=== PATIENT | female | born 2000 | race Caucasian/White ===

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

== ENCOUNTER 2020-03-01 07:21 | Outpatient (REF) | payer MEDICAID, SELFPAY ==
[2020-03-03 09:55] LABS: SARS-CoV-2 RNA Not Detected (NotDetected); SARS-CoV-2 RNA Source Nasal/Nares
== END 2020-03-01 07:41 ==
LOC: LBO 07:21
PROVIDERS: PCP Family Medicine; Visit Provider Nurse Practitioner Family
DX: Z20.828 Contact with and (suspected) exposure to other viral communicable diseases (principal); Z11.59 Encounter for screening for other viral diseases
CPT/HCPCS: U0003

== ENCOUNTER 2020-07-04 18:02 | Outpatient (REF) | payer MEDICAID, SELFPAY ==
[2020-07-04 20:41] LABS: Abs Immature Grans 0.04 10^3/uL (0.0-0.06); Absolute Basophil Count 0.08 10^3/uL (0.0-0.2); Absolute Eosinophil Count 0.42 10^3/uL (0.0-0.7); Absolute Lymphocyte Count 3.08 10^3/uL (1.2-3.4); Absolute Monocyte Count 0.87 10^3/uL (0.1-0.8); Basophils % 0.9; Eosinophils % 4.7; HCT 47.6 % (36.0-46.0); HGB 15.6 g/dL (11.2-15.7); Immature Grans % 0.4; Lymphocytes % 34.6; MCH 28.1 pg (27.0-33.0); MCHC 32.8 % (32.0-36.0); MCV 85.6 fL (80-95); MPV 9.3 fL (8.0-11.0); Monocytes % 9.8; Neutrophils % 49.6; Nucleated RBC 0 %; Platelet Count 372 10^3/uL (130-400); RBC 5.56 10^6/uL (3.93-5.22); RDW 12.7 % (11.7-14.6); RDW-SD 39.8 fL; WBC 8.89 10^3/uL (4.4-10.8)
[2020-07-04 21:31] LABS: ALT 21 U/L (14-59); AST 13 U/L (15-37); Albumin 4.1 g/dL (3.4-5.0); Alkaline Phosphatase 77 U/L (46-116); Anion Gap 8.2 mmol/L (3-11); BUN 8 mg/dL (7-18); Bilirubin, Total 0.3 mg/dL (0.2-1.0); CO2 27.8 mmol/L (21.0-32.0); CREATININE 0.7 mg/dL (0.55-1.02); Calcium 9.4 mg/dL (8.5-10.1); Chloride 105 mmol/L (98-107); Glucose 89 mg/dL (74-106); Potassium 4.8 mmol/L (3.5-5.1); Sodium 141 mmol/L (136-145); TSH (W/Ref FT4) 1.24 uIU/mL (0.52-4.13); Total Protein 7.4 g/dL (6.4-8.2)
[2020-07-05 11:10] LABS: ESR 9 mm/hr (<or=20)
== END 2020-07-04 18:03 | disposition home or self-care (01) ==
LOC: NCHCN 18:02
PROVIDERS: PCP Family Medicine; Visit Provider Nurse Practitioner Family
DX: R63.4 Abnormal weight loss (principal); R59.0 Localized enlarged lymph nodes
CPT/HCPCS: 80053; 85652; 84443; 85025

== ENCOUNTER 2021-09-12 18:59 | Outpatient (REF) | payer MEDICAID, SELFPAY ==
[2021-09-12 14:36] LABS: HCT 48.9 % (36.0-46.0); HGB 15.6 g/dL (11.2-15.7); MCH 28.3 pg (27.0-33.0); MCHC 31.9 % (32.0-36.0); MCV 89 fL (80-95); Platelet Count 345 10^3/uL (130-400); RBC 5.52 10^6/uL (3.93-5.22); RDW 13.7 % (11.7-14.6); RDW-SD 44.9 fL; WBC 11.48 10^3/uL (4.4-10.8)
[2021-09-12 14:48] LABS: Iron 62 ug/dL (50-170); Total Iron Binding Capacity 272 ug/dL (250-450); Transferrin Sat 23 % (15-50)
[2021-09-12 14:57] LABS: Anion Gap 8.3 mmol/L (3-11); BUN 8 mg/dL (7-18); CO2 27.7 mmol/L (21.0-32.0); CREATININE 0.7 mg/dL (0.55-1.02); Calcium 9.5 mg/dL (8.5-10.1); Chloride 105 mmol/L (98-107); Glucose 79 mg/dL (74-106); Potassium 4.2 mmol/L (3.5-5.1); Sodium 141 mmol/L (136-145); TSH (W/Ref FT4) 1.11 uIU/mL (0.36-3.74)
== END 2021-09-12 19:00 | disposition home or self-care (01) ==
LOC: NCHCN 18:59
PROVIDERS: PCP Family Medicine; Visit Provider Nurse Practitioner Family
DX: R63.4 Abnormal weight loss (principal)
CPT/HCPCS: 80048; 85027; 83540; 83550; 84443

== ENCOUNTER 2021-12-25 14:15 | Outpatient (REF) | payer MEDICAID, SELFPAY ==
--- NOTE | 2021-12-25 12:15 | PAPFT_PTH ---
PATIENT: Jordy Acevedo LOC: [facility] U#:[id number] AGE/SX: 21/F ROOM: RE12/25/[address]: Lucia Rosario : 2000 BED: DIS: 12/25/2021 SPEC #: [id number] RECD: 12/25/21 18:35 STATUS: LIBERTAD REQ #: [id number] CAITLIN: 12/25/21 12:[address]: Lucia Rosario DEPT: [facility] Cytology RECD BY: Estephanie Newman ENTERED: 12/25/21 18:36 SP TYPE: PAPFT OTHR DR: Duane Nielsen Tissues: 1 - CX/ENDOCX FOR PAP SMEARS Procedures: PAP THIN PREP/UVM Screening Comments: [id number] (CHLAMYDIA/GC)
[2021-12-25 20:07] LABS: TSH (W/Ref FT4) 0.92 uIU/mL (0.36-3.74)
[2021-12-26 15:09] LABS: Chlamydia Result Negative (Negative); GC Result Negative (Negative)
== END 2021-12-25 14:16 | disposition home or self-care (01) ==
LOC: NCHCN 14:15
PROVIDERS: PCP Family Medicine; Visit Provider Nurse Practitioner Family
DX: R63.4 Abnormal weight loss (principal); N92.6 Irregular menstruation, unspecified; Z12.4 Encounter for screening for malignant neoplasm of cervix; Z11.3 Encounter for screening for infections with a predominantly sexual mode of transmission
CPT/HCPCS: 87491; 87591; 88142; 84443

== ENCOUNTER 2022-04-21 16:34 | Emergency (ER) | payer MEDICAID, SELFPAY ==
[2022-04-21 16:42] VITALS: BP 110/69; PULSE 72; RESP 16; TEMP 36.6; O2SAT 100
--- NOTE | 2022-04-21 18:02 | W.ED.GENAD ---
Discharge Plan Disposition Patient Disposition: Home Condition: Improving Discharge Details Clinical Impression: Hand laceration Primary Care Provider: Duane Nielsen ED Provider: Julian Robbins Home Meds and New Rx's Prescriptions: Continued cholecalciferol (vitamin D3) 10 mcg (400 unit) tablet 10 mcg PO DAILY fluticasone propionate 16 GM spray,suspension 1 rc NS HS montelukast 10 mg Tablet 10 mg PO QPM Vitamin Plus Low Iron 27 mg iron- 1 mg tablet 1 tab PO DAILY Label Comments: TAKE ONE TABLET BY MOUTH EVERY DAY albuterol sulfate 2.5 mg /3 mL (0.083 %) solution for nebulization 2.5 mg inhalation Q4H PRN PRN Label Comments: INHALE THE CONTENTS OF ONE VIAL VIA NEBULIZER EVERY 4 TO 6 HOURS NEEDED albuterol sulfate [ProAir HFA] 200 PUFF HFA aerosol inhaler 2 puff Inhalation PRN PRN budesonide-formoterol [Symbicort] 80-4.5 mcg/actuation Hfa Aerosol Inhaler 1 puff INHALATION BID Discharge Instructions Instructions: Laceration (ED) Additional Instructions: Laceration repaired without difficulty. Keep the laceration clean and dry, change dressing daily. Sutures should be removed in 10 days. Please watch for new or worsening symptoms and return to the ER sooner as necessary. Discharge Data Discharge Date/Time-TO BE ENTERED AT DEPARTURE: 04/21/22 17:59 Medical Decision Making 21-year-old female, hajzm-mvea-zoytjzue, tetanus status up-to-date, accidentally cut her left hand with a knife when opening a gift. Denies numbness, tingling, weakness, concern for foreign body. No clear indication to obtain x-ray. Laceration will require repair Laceration repaired without difficulty. Antibiotic dressing applied. Standard discharge and return precautions were provided. Patient understands, is agreeable to this plan, and has no additional questions or concerns upon discharge. This documentation was generated using [employer] system, please disregard any oddities of phrase or misspellings. Medical Records Medical records reviewed: Yes I reviewed the patient's medical records. HPI General Mode of arrival: ambulatory. Date/Time Provider Initiated Documentation: 04/21/22 16:47. Information obtained by: patient. History of Present Illness 21 year old F presents to the emergency department with the chief complaint of L hand lac, described as mild, with intensity rated at 3. Quality is described as aching, and is localized to the left and upper extremity. Patient reports no radiation. Patient started experiencing this minute(s) (45) and it has been constant. No relieving factors improve symptom(s), No exacerbating factors reported . Patient notes no other symptoms.. Patient did receive the following treatments prior to arrival, none Related Data Home Medications Medication Instructions Recorded Confirmed fluticasone propionate 50 1 rc NS HS 02/01/13 04/21/22 mcg/actuation nasal spray,suspension albuterol sulfate 90 mcg/actuation 2 puff inhalation PRN PRN 09/23/16 04/21/22 aerosol inhaler (ProAir HFA) montelukast 10 mg tablet 10 mg PO QPM 02/07/18 04/21/22 budesonide-formoterol HFA 80 1 puff inhalation BID 04/02/18 04/21/22 mcg-4.5 mcg/actuation aerosol inhaler (Symbicort) cholecalciferol (vitamin D3) 10 10 mcg PO DAILY 09/12/19 04/21/22 mcg (400 unit) tablet vitamin with calcium 1 tab PO DAILY 10/06/19 04/21/22 no.72-iron 27 mg-folic acid 1 mg tablet ( Vitamins Plus Low Iron) albuterol sulfate 2.5 mg/3 mL 2.5 mg inhalation Q4H PRN PRN 10/09/19 04/21/22 (0.083 %) solution for nebulization Allergies Allergy/AdvReac Type Severity Reaction Status Date / Time house dust mite Allergy Intermediate Verified 04/21/22 16:45 Penicillins Allergy Skin Rash Unverified 04/21/22 16:45 General Stated Complaint: Laceration ROSALIO: 4 Review of Systems Constitutional Constitutional: Denies fever(s) and Denies weakness Musculoskeletal Musculoskeletal: Denies arthralgias, Denies numbness, Denies stiffness and Denies tingling Integumentary/Breasts Skin/Breast: Denies rash Neurologic Neurologic: Denies numbness, Denies tingling and Denies weakness PFSH All Active Problems Hand laceration (Acute) Penicillin allergy (Acute) (Acute) Positive test (Acute) Asthma (Chronic) Polycythemia (Acute) Medical History Contraceptive management 12/2017 Mirena IUD inserted. Removed 4 days after insertion secondary to pelvic pain. Negative STI and vaginal pathogen screen 01/18/2018 Rx for OCPs 02/23/2018 Stopped OCPs r/t migraines, Rx for Nuvaring, pt aware of risk of migraines Encounter for IUD insertion Surgical History S/P appendectomy Family History Maternal Grandmother Multiple sclerosis Melanoma Social History Smoking/Tobacco Use Status: Never Smoking risk assessment performed?: Yes Alcohol Intake: never Drug use: Occasionally Substance use type: marijuana Details: smokes marijuana couple times per week What is your relationship status?: living with partner Panel score (0-1 are the most socially isolated patients): 1 Do you feel safe at home: Yes Do you feel safe in your relationship?: Yes 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 Date GA/Weeks # Preg Succ Route Wgt Sex Labor Lgth Anesthesia Location [facility] 09/06/20 Delivery Date: 09/06/20 Last Updated by: Eve Perry LPN Patient transferred care to [facility]. Exam Const General: cooperative, healthy appearing, comfortable and no acute distress Orientation: alert and awake HENCT Head: normal to inspection, normocephalic and atraumatic Eyes Conjunctivae: conjunctivae normal Neck Neck: normal visual inspection, trachea midline and supple Resp Effort & Inspection: normal respiratory effort and able to speak in complete sentences Cardio Rate: regular rate Rhythm: regular rhythm Skin General skin exam: no rashes or lesions noted Neuro General: patient alert, patient awake, moves all extremities and no focal motor deficits Cognition: normal cognition Speech: speech normal Gait: normal gait Sensory Exam: no sensory deficits noted Extrem General: full ROM and capillary refill normal Hand/finger images: 1. 2.5 cm well approximated laceration. Bleeding controlled. Neuro, vascular, tendon intact. No foreign body. Normal capillary refill. 5-5 strength Psych Appearance: grossly normal Mental Status: mental status grossly normal Course Vital Signs Vital signs: Vital Signs Temperature 36.6 C 04/21/22 16:42 Pulse 72 04/21/22 16:42 Respiratory Rate 16 04/21/22 16:42 Blood Pressure 110/69 04/21/22 16:42 Pulse Oximetry 100 04/21/22 16:42 Temperature 36.6 C 04/21/22 16:42 Temperature Source Temporal Artery Scan 04/21/22 16:42 Pulse 72 04/21/22 16:42 Respiratory Rate 16 04/21/22 16:42 Respiratory Effort Non-Labored 04/21/22 16:47 Blood Pressure 110/69 04/21/22 16:42 Blood Pressure Position Sitting 04/21/22 16:42 Pulse Oximetry 100 04/21/22 16:42 Oxygen Delivery Method Room Air 04/21/22 16:42 Oxygen Flow Rate 0 04/21/22 16:42 Procedures Laceration Laceration 1: Site: hand Side (If applicable): left Size (cm): 2.5 Description: linear and clean Depth: simple, single layer Local Anesthetic: Lidocaine 1% Amount of anesthesia used (mL): 4 Pre-repair: wound explored Skin layer closed with: nylon Size (cm): 4-0 Number of sutures: 4 Technique: simple, interrupted
== END 2022-04-21 17:59 | disposition home or self-care (01) ==
PROVIDERS: Emergency Provider Physician Assistant; PCP Family Medicine
DX: S61.412A Laceration without foreign body of left hand, initial encounter (principal); W26.0XXA Contact with knife, initial encounter
CPT/HCPCS: 12001

== ENCOUNTER 2022-10-07 13:54 | Outpatient (REF) | payer MEDICAID, SELFPAY ==
[2022-10-07 14:37] LABS: Abs Immature Grans 0.04 10^3/uL (0.0-0.06); Absolute Basophil Count 0.09 10^3/uL (0.0-0.2); Absolute Eosinophil Count 0.29 10^3/uL (0.0-0.7); Absolute Monocyte Count 0.84 10^3/uL (0.1-0.8); Basophils % 0.8; Eosinophils % 2.6; HCT 47.9 % (36.0-46.0); HGB 15.8 g/dL (11.2-15.7); Immature Grans % 0.4; Lymphocytes % 34.3; MCH 28.3 pg (27.0-33.0); MCV 86 fL (80-95); MPV 9.4 fL (8.0-11.0); Monocytes % 7.5; Neutrophils % 54.4; Platelet Count 376 10^3/uL (130-400); RBC 5.59 10^6/uL (3.93-5.22); RDW 12.4 % (11.7-14.6); RDW-SD 39.1 fL; WBC 11.15 10^3/uL (4.4-10.8)
[2022-10-07 14:42] LABS: Absolute Lymphocyte Count 3.82 10^3/uL (1.2-3.4); Absolute Neutrophil Count 6.07 10^3/uL (1.2-6.7)
[2022-10-07 14:45] LABS: ESR 10 mm/hr (0-20)
[2022-10-07 14:52] LABS: ALT 18 U/L (14-59); AST 14 U/L (15-37); Albumin 4.2 g/dL (3.4-5.0); Alkaline Phosphatase 88 U/L (46-116); Anion Gap 5.9 mmol/L (3-11); BUN 9 mg/dL (7-18); Bilirubin, Total 0.5 mg/dL (0.2-1.0); CO2 30.1 mmol/L (21.0-32.0); CREATININE 0.7 mg/dL (0.55-1.02); Calcium 9.1 mg/dL (8.5-10.1); Chloride 101 mmol/L (98-107); Estimated GFR 125.33 (mL/min/1.73m2); Glucose 82 mg/dL (74-106); Potassium 5.4 mmol/L (3.5-5.1); Sodium 137 mmol/L (136-145); TSH (W/Ref FT4) 0.78 uIU/mL (0.36-3.74); Total Protein 7.6 g/dL (6.4-8.2)
== END 2022-10-07 13:55 | disposition home or self-care (01) ==
LOC: NCHCN 13:54
PROVIDERS: PCP Family Medicine; Visit Provider Nurse Practitioner Family
DX: F41.8 Other specified anxiety disorders (principal); R59.1 Generalized enlarged lymph nodes; R63.4 Abnormal weight loss
CPT/HCPCS: 80053; 85652; 84443; 85025

== ENCOUNTER 2022-11-17 01:18 | Outpatient (CLI) | payer MEDICAID, SELFPAY ==
[2022-11-17] MEDS: Barium Sulfate 2% W/V-Creamy Vanilla Smoothie 450 ML BTL PO ×2 (12:56→12:57)
[2022-11-17] MEDS: Omnipaque 350 MG/ML 100 ML BTL IJ (14:49)
[2022-11-17] MEDS: Normal Saline - Diluent 50 ML VIAL IJ (14:50)
[2022-11-17] MEDS: Normal Saline Flush 10 ML SYR IVP (14:51)
--- NOTE | 2022-11-17 15:00 | DI.CT_ITS ---
Exam(s) CT ABDOMEN PELVIS W EXAM: CT ABDOMEN PELVIS W CLINICAL HISTORY: LYMPHADENOPATHY, R59.1, WT LOSS, R63.4, HEAVY MENSTRUATION, N92.0. TECHNIQUE: Imaging Protocol: Axial computed tomography images with coronal and sagittal reformatted images were created and reviewed CONTRAST MATERIAL: Intravenous: Omnipaque 350 Contrast volume:85 mL Oral: yes / CR XR PORTABLE CHEST AP from 10/09/2019 FINDINGS: Exam is limited by lack of intra-abdominal fat. ABDOMEN: Lung Bases: Mildly increased reticulonodular densities at the lung bases with significant improvement compared with prior chest CT. Liver: Normal density. No measurable mass. Gallbladder and biliary tract: No radiodense calculus or dilation. Pancreas: Normal density, no abnormal calcifications or inflammatory process. Spleen: Normal. Kidneys: Normal size, contour and axis. No radiodense stones or obstructive uropathy. No suspicious m asses seen. Adrenal glands: No masses seen. Abdominal Aorta: Abdominal portion non-dilated. Soft tissues: Unremarkable. PELVIS: Bladder: No gross wall thickening. No calculi.No focal mass. Bowel: No obstruction. No bowel wall thickening. Appendix visualized. Moderate to increased quanti ty of stool. Peritoneal cavity: No ascites, collection or mesenteric inflammatory response. Bones: Unremarkable for age. Reproductive organs: Within normal limits. Lymph nodes: Unremarkable. Impression: No evidence of mass or adenopathy. Uterus and ovaries appear normal. Mild chronic reticulonodular densities at the lung bases. Clinical correlation recommended. RADIATION DOSE DELIVERED: 541.28mGy.cm Total DLP DATA REPOSITORY: All CT scans at this facility are submitted to the National Radiology Data Registry (NRDR) Dose Index Registry (DIR) with the [employer] (ACR). RADIATION OPTIMIZATION: All CT scans at this facility use at least one of these dose optimization te chniques: automated exposure control; mA and/or kV adjustment per patient size (includes targeted exa ms where dose is matched to clinical indication); or iterative reconstruction.
== END 2022-11-17 01:38 ==
LOC: DI 01:19
PROVIDERS: PCP Family Medicine; Visit Provider Nurse Practitioner Family
DX: R59.1 Generalized enlarged lymph nodes (principal); R63.4 Abnormal weight loss; N92.0 Excessive and frequent menstruation with regular cycle; R91.8 Other nonspecific abnormal finding of lung field
CPT/HCPCS: 74177; J3490

== ENCOUNTER 2024-01-18 19:36 | Emergency (ER) | payer MEDICAID, SELFPAY ==
[2024-01-18 19:38] VITALS: BP 114/71; PULSE 109; RESP 20; TEMP 36.7; O2SAT 95
--- NOTE | 2024-01-18 19:45 | DI.RAD_ITS ---
Exam(s) XR CHEST 2V PA LATERAL EXAM: XR CHEST 2V PA LATERAL CLINICAL HISTORY: cough TECHNIQUE: 2D digital imaging was performed. Two views. COMPARISON: CR XR PORTABLE CHEST AP from 10/09/2019 FINDINGS: HEART: Normal size. Aorta: Not dilated. PULMONARY VASCULATURE: Normal. MEDIASTINUM: Unremarkable. LUNGS: Clear. PLEURAL SPACE: No pleural effusion or pneumothorax. BONE:Unremarkable for age. SOFT TISSUES: Unremarkable. IMPRESSION: No acute abnormality. DATA REPOSITORY: RADIATION DOSE DELIVERED:
--- NOTE | 2024-01-18 19:54 | ED.GENADUL_ITS ---
Discharge Plan Disposition Patient Disposition: Home Condition: Stable Discharge Details Clinical Impression: Asthma, Sinusitis, Cough Primary Care Provider: Lucia Rosario ED Provider: Rico Ospina Home Meds and New Rx's Prescriptions: New prednisone 20 mg tablet 60 mg PO DAILY 4 Days Qty: 12 0RF doxycycline hyclate 100 mg tablet 100 mg PO BID Qty: 14 0RF Continued albuterol sulfate [Proventil HFA] 90 mcg/actuation HFA aerosol inhaler 2 puff inhalation Q6H PRN (Reason: shortness of breath or wheezing) Qty: 8.5 0RF cholecalciferol (vitamin D3) 10 mcg (400 unit) tablet 10 mcg PO DAILY fluticasone propionate 16 GM spray,suspension 1 rc NS HS montelukast 10 mg Tablet 10 mg PO QPM albuterol sulfate [ProAir HFA] 200 PUFF HFA aerosol inhaler 2 puff Inhalation PRN PRN budesonide-formoterol [Symbicort] 80-4.5 mcg/actuation Hfa Aerosol Inhaler 1 puff INHALATION BID albuterol sulfate 2.5 mg /3 mL (0.083 %) solution for nebulization 2.5 mg inhalation Q4H PRN PRN (Reason: shortness of breath or wheezing) Qty: 90 0RF Discharge Instructions Additional Instructions: If you are not improving over the 1 week follow-up with your primary care provider If you feel more ill or have new symptoms such as persistent vomiting or severe worsening shortness of breath return to the emergency department for reevaluation HPI General Mode of arrival: ambulatory . Date/Time Provider Initiated Documentation: 01/18/24 19:38 . Limitations to Documentation: no limitations . Information obtained by: patient . History of Present Illness 23 year old F presents to the emergency department with the chief complaint of cough, d escribed as moderate, Patient started experiencing this week(s) (2) and it has been constant. No relieving factors improve symptom(s), No exacerbating factors reported . Patient notes chest pain and cough. Patient did receive the following treatments prior to arrival, none Related Data Home Medications ?Medication ?Instructions ?Recorded ?Confirmed fluticasone propionate 50 1 rc NS HS 02/01/13 01/18/24 mcg/actuation nasal spray,suspension albuterol sulfate 90 mcg/actuation 2 puff inhalation PRN PRN 09/23/16 01/18/24 aerosol inhaler (ProAir HFA) montelukast 10 mg tablet 10 mg PO QPM 02/07/18 01/18/24 budesonide-formoterol HFA 80 1 puff inhalation BID 04/02/18 01/18/24 mcg-4.5 mcg/actuation aerosol inhaler (Symbicort) cholecalciferol (vitamin D3) 10 10 mcg PO DAILY 09/12/19 01/18/24 mcg (400 unit) tablet albuterol sulfate 90 mcg/actuation 2 puff inhalation Q6H PRN 04/21/23 01/18/24 aerosol inhaler (Proventil HFA) shortness of breath or wheezing #8.5 grams albuterol sulfate 2.5 mg/3 mL 2.5 mg (3 mL) inhalation Q4H PRN 01/18/24 (0.083 %) solution for nebulization PRN shortness of breath or wheezing #90 mL doxycycline hyclate 100 mg tablet 100 mg PO BID #14 tabs 01/18/24 prednisone 20 mg tablet 60 mg (3 x 20 mg) PO DAILY 4 days 01/18/24 #12 tabs Previous Rx's ?Medication ?Instructions ?Recorded albuterol sulfate 90 mcg/actuation 2 puff inhalation Q6H PRN 04/21/23 aerosol inhaler (Proventil HFA) shortness of breath or wheezing #8.5 grams albuterol sulfate 2.5 mg/3 mL 2.5 mg (3 mL) inhalation Q4H PRN 01/18/24 (0.083 %) solution for nebulization PRN shortness of breath or wheezing #90 mL doxycycline hyclate 100 mg tablet 100 mg PO BID #14 tabs 01/18/24 prednisone 20 mg tablet 60 mg (3 x 20 mg) PO DAILY 4 days 01/18/24 #12 tabs Allergies Allergy/AdvReac Type Severity Reaction Status Date / Time house dust mite Allergy Intermediate Unknown Verified 01/18/24 20:03 Penicillins Allergy Skin Rash Unverified 01/18/24 20:03 General Stated Complaint: RespSymp ROSALIO: 3 Review of Systems All systems reviewed & are unremarkable except as noted in HPI and below Constitutional Constitutional: Denies chills, Denies fever(s) and Denies weakness Cardiovascular Cardiovascular: Reports chest pain and Reports dyspnea Respiratory Respiratory: Reports cough and Reports dyspnea Gastrointestinal Gastrointestinal: Denies abdominal pain, Denies nausea and Denies vomiting Neurologic Neurologic: Denies weakness Exam Const General: no acute distress Orientation: alert [facility] Head: normal to inspection Ears: external ears normal General nose exam: external nose normal Mouth: moist mucous membranes Eyes General: appearance normal, both eyes and all related structures Neck Neck: normal visual inspection Resp Effort & Inspection: normal respiratory effort and able to speak in complete sentences Auscultation: wheezes Cardio Rate: regular rate Skin General skin exam: no rashes or lesions noted Neuro General: patient alert and patient oriented x3 Extrem General: normal to inspection Psych Mental Status: mental status grossly normal Course Vital Signs Vital signs: Vital Signs Temperature 36.7 C 01/18/24 19:38 Pulse 109 H 01/18/24 19:38 Respiratory Rate 20 01/18/24 19:38 Blood Pressure 114/71 01/18/24 19:38 Pulse Oximetry 95 01/18/24 19:38 Temperature 36.7 C 01/18/24 19:38 Temperature Source Tympanic 01/18/24 19:38 Pulse 109 H 01/18/24 19:38 Respiratory Rate 20 01/18/24 19:38 Blood Pressure 114/71 01/18/24 19:38 Blood Pressure Position Sitting 01/18/24 19:38 Pulse Oximetry 95 01/18/24 19:38 Oxygen Delivery Method Room Air 01/18/24 19:38 Oxygen Flow Rate 0 01/18/24 19:38 Pain Level 3 01/18/24 19:38 Medical Decision Making 23-year-old female with a history of asthma comes in with complaints of 2 weeks of sinus pressure, cough and now has some shortness of breath. She denies any high fevers. No abdominal pain or vomiting. She is speaking in full sentences on exam. She says that when she coughs she has lateral chest pain bilaterally. She has no leg swelling or calf tenderness. She is well-appearing and speaking in full sentences. She does have diffuse wheezing bilaterally and lung exam, no murmurs, no JVD. Her history and exam is consistent with a likely respiratory infection with asthma exacerbation, will check a Fluvid and also the chest x-ray to evaluate for infiltrate treat her symptoms with prednisone and a DuoNeb and reassess. COVID and flu negative, x-ray on my read is unremarkable. Patient feels much better and now has only apical wheezing bilaterally. Suspect asthma exacerbati on with uri vs sinusitis. Will start her on doxy as she has a penicillin allergy given she has had symptoms for 2 weeks. She will follow-up with her PCP if not improving and return precautions given Differential Diagnosis Differential Diagnosis: Sinus, asthma exacerbation, URI, pneumonia Quality:SDOH Health Related Social Needs: No Data to Display PFSH All Active Problems (Updated 01/18/24 @ 21:00 by Rico Ospina MD) Cough (Acute) Sinusitis (Acute) Penicillin allergy (Acute) (Acute) Positive test (Acute) Asthma (Chronic) Polycythemia (Acute) Medical History Contraceptive management 12/2017 Mirena IUD inserted. Removed 4 days after insertion secondary to pelvic pain. Negative STI and vaginal pathogen screen 01/18/2018 Rx for OCPs 02/23/2018 Stopped OCPs r/t migraines, Rx for Nuvaring, pt aware of risk of migraines Encounter for IUD insertion Surgical History S/P appendectomy Family History Maternal Grandmother Multiple sclerosis Melanoma Social History Smoking/Tobacco Use Status: Never Smoking risk assessment performed?: Yes Alcohol Intake: never Drug use: Occasionally Substance use type: marijuana Details: smokes marijuana couple times per week What is your relationship status?: living with partner Panel score (0-1 are the most socially isolated patients): 1 Do you feel safe at home: Yes Do you feel safe in your relationship?: Yes 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 Date GA/Weeks # Preg Succ Route Wgt Sex Labor Lgth Anesth esia Location Prov Complic 09/06/20 Delivery Date: 09/06/20 Last Updated by: Eve Perry LPN Patient transferred care to [facility].
[2024-01-18] MEDS: predniSONE 20 MG TAB 60 MG PO (20:02)
[2024-01-18] MEDS: Albuterol/Ipratropium 3 ML UPD VIAL UPD (20:02)
[2024-01-18 20:46] VITALS: BP 115/66; PULSE 90; RESP 18; O2SAT 96
[2024-01-18 20:50] LABS: COVID-19 PCR Negative (Negative); Influenza A PCR Negative (Negative); Influenza B PCR Negative (Negative); RSV PCR Negative (Negative)
[2024-01-18 20:52] LABS: Source Nasopharynx
[2024-01-18] MEDS: Doxycycline Hyclate 100 MG CAP PO (20:58)
[2024-01-18] MEDS: Albuterol HFA 8 GM 60 PUFF INH IH (21:06)
--- NOTE | 2024-01-18 21:34 | DI.VRAD_ITS ---
PROCEDURE INFORMATION: Exam: XR Chest Exam date and time: 01/18/2024 8:37 PM Age: 23 years old Clinical indication: Patient HX: Cough for a few weeks TECHNIQUE: Imaging protocol: Radiologic exam of the chest. Views: 2 views. COMPARISON: CR XR PORTABLE CHEST AP 10/09/2019 10:20 AM FINDINGS: Lungs: No pulmonary consolidation is seen. Pleural spaces: No pleural effusion or pneumothorax is demonstrated. Heart/Mediastinum: The heart appears normal in size. Bones/joints: The visualized bony structures appear intact. IMPRESSION: No active disease is seen in the chest. Dictated and Authenticated by: Caio Castaneda MD. Ordering:GREG Gómez MD
== END 2024-01-18 21:07 | disposition home or self-care (01) ==
PROVIDERS: Emergency Provider Emergency Medicine; PCP Nurse Practitioner Family
DX: J45.901 Unspecified asthma with (acute) exacerbation (principal); R05.1 Acute cough; R06.02 Shortness of breath; J32.9 Chronic sinusitis, unspecified
CPT/HCPCS: 87637; 94640; 99283; 71046; J7512; J7620

== ENCOUNTER 2024-08-13 21:01 | Emergency (ER) | payer MEDICAID, SELFPAY ==
[2024-08-13 21:04] VITALS: BP 133/66; PULSE 72; RESP 20; TEMP 36.8; O2SAT 100
[2024-08-13 21:30] LABS: Bilirubin Moderate (Negative); Blood Large (Negative); Clarity Turbid (Clear); Glucose Negative (Negative); Ketones 15 mg/dL (Negative); Leukocyte Esterase Small (Negative); Nitrite Negative (Negative); Specific Gravity >= 1.030 (1.005-1.025)
[2024-08-13 21:36] LABS: C & S Indicated? No; RBC >50 HPF (0-2)
[2024-08-13] MEDS: Sulfameth/Trimeth DS, 2 TABS/BTL 1 TAB PO (23:07)
--- NOTE | 2024-08-13 23:09 | ED.GENADUL_ITS ---
Discharge Plan Disposition Patient Disposition: Home Condition: Stable Discharge Details Clinical Impression: Acute hemorrhagic cystitis Primary Care Provider: Lucia Rosario ED Provider: Estephanie De Leon Home Meds and New Rx's Prescriptions: New sulfamethoxazole-trimethoprim [Bactrim DS] 800-160 mg tablet 1 tab PO DAILY 5 Days Qty: 5 0RF Continued cholecalciferol (vitamin D3) 10 mcg (400 unit) tablet 10 mcg PO DAILY sertraline 25 mg tablet 25 mg PO DAILY Patient Comments: TAKE ONE TABLET BY MOUTH EVERY MORNING FOR MIXED ANXIETY AND DEPRESSION acetylcysteine 600 mg capsule 600 mg PO BID Patient Comments: TAKE TWO CAPSULES BY MOUTH TWICE A DAY DIRECTED FOR MOOD. TAKE IN THE MORNING AND MID AFTERNOON Discharge Instructions Instructions: Urinary Tract Infection, Adult ED Additional Instructions: Please have your urine rechecked by your primary care physician in 2 weeks You have sexually transmitted disease swabs that are pending, we will notify you if there is any positive results Please take the antibiotic as prescribed, if you continue to have blood in your urine I do recommend reassessment in 48 to 72 hours should you develop fever chills or defined persistent flank pain Referrals: Lucia Rosraio [Primary Care Provider] - 1 day HPI General Date/Time Provider Initiated Documentation: 08/13/24 21:05 . HPI Narrative: The patient is a healthy 24-year-old female with dysuria, oliguria, frequency, and bloody clots since 1200 hours. She had a sexual partner this week without protection, denies STD risk, fever, chills, focal pain, , and history of kidney stones. Symptoms consistent with UTI. Related Data Home Medications ?Medication ?Instructions ?Recorded ?Confirmed cholecalciferol (vitamin D3) 10 10 mcg PO DAILY 09/12/19 08/13/24 mcg (400 unit) tablet acetylcysteine 600 mg capsule 600 mg PO BID 08/13/24 08/13/24 sertraline 25 mg tablet 25 mg PO DAILY 08/13/24 08/13/24 sulfamethoxazole 800 1 tab PO DAILY 5 days #5 tabs 08/13/24 mg-trimethoprim 160 mg tablet (Bactrim DS) Previous Rx's ?Medication ?Instructions ?Recorded sulfamethoxazole 800 1 tab PO DAILY 5 days #5 tabs 08/13/24 mg-trimethoprim 160 mg tablet (Bactrim DS) Allergies Allergy/AdvReac Type Severity Reaction Status Date / Time house dust mite Allergy Intermediate Unknown Verified 08/13/24 21:08 Penicillins Allergy Skin Rash Verified 08/13/24 21:08 General Stated Complaint: Urinary ROSALIO: 4 Exam Narrative Exam Narrative: General Appearance: Alert and oriented, in no acute distress. Vital signs: Within normal limits. HEENT: Within normal limits. Respiratory: Within normal limits. Gastrointestinal: Mild suprapubic pressure with palpation. Genitourinary: Female: no cervical motion tenderness, no rashes or lesions, no abnormal discharge. Back, Musculoskeletal: No CVA tenderness. Skin: Warm and dry, no rash. Neurological: Normal. Course Vital Signs Vital signs: Vital Signs Temperature 36.8 C 08/13/24 21:04 Pulse 72 08/13/24 21:04 Respiratory Rate 20 08/13/24 21:04 Blood Pressure 133/66 08/13/24 21:04 Pulse Oximetry 100 08/13/24 21:04 Temperature 36.8 C 08/13/24 21:04 Temperature Source Temporal Artery Scan 08/13/24 21:04 Pulse 72 08/13/24 21:04 Respiratory Rate 20 08/13/24 21:04 Blood Pressure 133/66 08/13/24 21:04 Pulse Oximetry 100 08/13/24 21:04 Oxygen Delivery Method Room Air 08/13/24 21:04 Oxygen Flow Rate 0 08/13/24 21:04 Pain Level 4 08/13/24 21:04 Lab/Test Results Lab/Test Results: 08/13/24 22:00 Vaginal Vaginitis Screen - Final 08/13/24 21:20 Urine - Voided Urine Culture - Pending Laboratory Tests Range/Units 08/13/24 21:20 Urine Color (Yellow) Brown Urine Clarity (Clear) Turbid Urine pH (5-8) 6.0 Ur Specific [place] (1.005-1.025) >= 1.030 H Urine Protein (Neg-Trace) mg/dL >=300 H Urine Ketones (Negative) mg/dL 15 H Urine Blood (Negative) Large H Urine Nitrite (Negative) Negative Urine Bilirubin (Negative) Moderate H Urine Urobilinogen (Up to 0.2) mg/dL 1.0 H Ur Leukocyte Esterase (Negative) Small H Urine RBC (0-2) HPF >50 H Urine WBC Not Applicable Ur Epithelial Cells Not Applicable Urine Crystals Not Applicable Urine Bacteria Not Applicable Urine Mucus Not Applicable Ur Culture Indicated? No Urine Glucose (Negative) mg/dL Negative POC- Test(urine) Negative Medical Decision Making Urinalysis: >50 RBCs. Initial Assessment: Miss healthy 24-year-old female with dysuria, oliguria, frequency, and bloody clots since this afternoon. Denies fever, chills, risk of STDs, and history of kidney stones. Mild suprapubic pressure with palpation, no acute distress. Urinalysis shows >50 RBCs. Differential Diagnosis: - Hemorrhagic cystitis: Suspected due to dysuria, oliguria, frequency, bloody clots, and urinalysis results. Plan to send urine for culture, order gonorrhea, chlamydia, and vaginosis panel, and treat with Bactrim. ED Course: - Urinalysis: >50 RBCs. - Send urine culture. - Order gonorrhea, chlamydia, and vaginosis panel. - Treat with Bactrim. Final Assessment: Patient presents with symptoms consistent with hemorrhagic cystitis. Urinalysis confirms presence of >50 RBCs. Treatment initiated with Bactrim, and urine culture along with gonorrhea, chlamydia, and vaginosis panel ordered. Clinical Impression: - Hemorrhagic cystitis Disposition: - Discharge - Follow-Up: Repeat urinalysis in 2 weeks. Advise to return if symptoms worsen or new ones develop. MDM Components Evaluation: - Number of Differential Diagnoses or Management Options: Hemorrhagic cystitis - Amount and Complexity of Data Reviewed: Urinalysis, urine culture, gonorrhea, chlamydia, and vaginosis panel - Risk of Complication and Morbidity or Mortality: Low risk based on current symptoms and treatment plan. Quality:SDOH Health Related Social Needs: No Data to Display PFSH All Active Problems (Updated 08/13/24 @ 22:06 by VASYL Peters) Acute hemorrhagic cystitis (Acute) Penicillin allergy (Acute) (Acute) Positive test (Acute) Asthma (Chronic) Polycythemia (Acute) Medical History Contraceptive management 12/2017 Mirena IUD inserted. Removed 4 days after insertion secondary to pelvic pain. Negative STI and vaginal pathogen screen 01/18/2018 Rx for OCPs 02/23/2018 Stopped OCPs r/t migraines, Rx for Nuvaring, pt aware of risk of migraines Encounter for IUD insertion Surgical History S/P appendectomy Family History Maternal Grandmother Multiple sclerosis Melanoma Social History Smoking/Tobacco Use Status: Never Smoking risk assessment performed?: Yes Alcohol Intake: never Drug use: Occasionally Substance use type: marijuana Details: smokes marijuana couple times per week What is your relationship status?: living with partner Panel score (0-1 are the most socially isolated patients): 1 Do you feel safe at home: Yes Do you feel safe in your relationship?: Yes 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 Date GA/Weeks # Preg Succ Route Wgt Sex Labor Lgth Anesth esia Location Prov Complic 09/06/20 Delivery Date: 09/06/20 Last Updated by: Eve Perry LPN Patient transferred care to [facility].
[2024-08-16 12:39] LABS: Chlamydia Result Invalid (Negative); GC Result Invalid (Negative)
== END 2024-08-13 23:08 | disposition home or self-care (01) ==
LOC: ER 23:08
PROVIDERS: Emergency Provider Physician Assistant; PCP Nurse Practitioner Family
DX: N30.01 Acute cystitis with hematuria (principal)
CPT/HCPCS: 99283 ×2; 81025; 87491; 87591; 81003; 81015; 87086; 87480; 87510; 87660

== ENCOUNTER 2024-09-12 14:17 | Outpatient (REF) | payer MEDICAID, SELFPAY ==
[2024-09-13 11:27] LABS: Chlamydia Result Negative (Negative); GC Result Negative (Negative)
== END 2024-09-12 14:18 | disposition home or self-care (01) ==
LOC: LBN 14:17
PROVIDERS: PCP Nurse Practitioner Family; Visit Provider Nurse Practitioner Women's Health
DX: Z11.3 Encounter for screening for infections with a predominantly sexual mode of transmission (principal); N76.0 Acute vaginitis
CPT/HCPCS: 87491; 87591; 87480; 87510; 87660

== ENCOUNTER 2024-12-23 19:56 | Emergency (ER) | payer MEDICAID, SELFPAY ==
--- NOTE | 2024-12-23 20:03 | W.ED.GENAD ---
Discharge Plan Disposition Patient Disposition: Home Condition: Improving Discharge Details Clinical Impression: Asthma Primary Care Provider: Lucia Rosario ED Provider: Vik Marie Home Meds and New Rx's Prescriptions: New albuterol sulfate 1.25 mg/3 mL solution for nebulization 1.25 mg inhalation QID PRNQty: 75 0RF prednisone 10 mg tablet 10 mg PO DIRECTED Qty: 30 0RF Rx Instructions: see taper instructions 4 bab x 3 days, 3 tab x 3 days, 2 tab x 3 days, 1 tab x 3 days Continued cholecalciferol (vitamin D3) 10 mcg (400 unit) tablet 10 mcg PO DAILY Discharge Instructions Instructions: Asthma, Adult ED Discharge Data Discharge Physician: Vik Marie HPI General Date/Time Provider Initiated Documentation: 12/23/24 20:03. HPI Narrative: Patient presented to the emergency department complaining of cough congestion and an upper respiratory infection she says that has exacerbated her asthma and how short of breath reports fever but not here denies any chest pain Related Data Home Medications ?Medication ?Instructions ?Recorded ?Confirmed cholecalciferol (vitamin D3) 10 10 mcg PO DAILY 09/12/19 12/23/24 mcg (400 unit) tablet albuterol sulfate 1.25 mg/3 mL 1.25 mg (3 mL) inhalation QID PRN 12/23/24 solution for nebulization #75 mL prednisone 10 mg tablet 10 mg PO DIRECTED #30 tabs 12/23/24 Previous Rx's ?Medication ?Instructions ?Recorded albuterol sulfate 1.25 mg/3 mL 1.25 mg (3 mL) inhalation QID PRN 12/23/24 solution for nebulization #75 mL prednisone 10 mg tablet 10 mg PO DIRECTED #30 tabs 12/23/24 Allergies Allergy/AdvReac Type Severity Reaction Status Date / Time house dust mite Allergy Intermediate Unknown Verified 12/23/24 20:09 Penicillins Allergy Skin Rash Verified 12/23/24 20:09 General ROSALIO: 4 Review of Systems Narrative: Review of Systems: Constitutional: No fevers, chills, sweats Eye: No recent visual problems ENT: No ear pain, , sore throat Cardiovascular: No Chest pain, palpitations, syncope Gastrointestinal: No nausea, vomiting, diarrhea Genitourinary: No hematuria [place]/Lymph: Negative for bruising tendency, swollen lymph glands Endocrine: Negative for excessive thirst, excessive hunger Musculoskeletal: No back pain, neck pain, joint pain, muscle pain, decreased range of motion Integumentary: No rash, pruritus, abrasions Neurologic: Alert & oriented X 4 Psychiatric: No anxiety, depression Exam Narrative Exam Narrative: Exam; vitals signs as reported above normal Constitutional; In no acute distress, afebrile General: cooperative, healthy appearing, comfortable and no acute distress HEENT: Head: normal to inspection, no palpable skull fracture and normocephalic atraumatic Eyes: : appearance normal, both eyes and all related structures EOM intact bilaterally Pupils: PERRL : conjunctiva normal Direct ophthalmoscopy: normal light reflex, normal conjunctiva, normal visual acuity Ears: Normal TM, normal external canal Nose: normal no rhinorreha Neck no JVD, supple non tender Neck: normal visual inspection, full ROM and no lymphadenopathy Chest: normal inspection of the chest Respiratory : Bilateral inspiratory and expiratory wheezes Cardio Rate: regular rate, rhythm: regular rhythm normal heart sounds S1 and S2 no murmurs, gallops, or rubs GI : normal to inspection, normal bowel sounds, soft, non tender, non distended, no organomegaly Back/Spine/ no CVA tenderness Thoracic/Lumbar Spine: no tenderness or deformities Skin no rashes or lesions Neuro: patient alert oriented x 4 and no meningeal signs, Cranial Nerves: CN's II-XI intact bilaterally, Cognition: normal cognition, Speech: speech normal, Gait: normal gait, Depp tendon reflexes normal 2+ muscle strength 5/5 bilaterally Extremities, no edema, full range of motion, normal strength Medical Decision Making MDM: Summary: Patient with mild to moderate asthma exacerbated with some viral illness but her COVID-19 test is negative. She is getting a nebulized DuoNeb and prednisone as 60 mg with almost complete resolution reexamination of her wheezes. She will be discharged home she has a nebulizer at home will be giving albuterol solution and a tapering dose of prednisone. Data Review Analysis All the data on this patient was reviewed by me including laboratory and imaging studies as well as bedside studies performed by me Independent review of Studies Imaging Lab: Risk Stratification: Patient with moderate to moderate asthma will be discharged on beta 2 agonist and steroids Differential Diagnosis: 1. Asthma exacerbation 2. COVID-19 infection 3. Pneumonia 4. 5. Consultants: Shared disposition: Patient assents disposition will follow according Impression: Medical Records Medical records reviewed: Yes I reviewed the patient's medical records. [facility] All Active Problems (Updated 12/23/24 @ 21:32 by iVk Marie MD) Penicillin allergy (Acute) (Acute) Positive test (Acute) Asthma (Chronic) Polycythemia (Acute) Medical History Contraceptive management 12/2017 Mirena IUD inserted. Removed 4 days after insertion secondary to pelvic pain. Negative STI and vaginal pathogen screen 01/18/2018 Rx for OCPs 02/23/2018 Stopped OCPs r/t migraines, Rx for Nuvaring, pt aware of risk of migraines Encounter for IUD insertion Surgical History S/P appendectomy Family History Maternal Grandmother Multiple sclerosis Melanoma Social History Smoking/Tobacco Use Status: Never Smoking risk assessment performed?: Yes Alcohol Intake: never Drug use: Occasionally Substance use type: marijuana Details: smokes marijuana couple times per week What is your relationship status?: living with partner Panel score (0-1 are the most socially isolated patients): 1 Do you feel safe at home: Yes Do you feel safe in your relationship?: Yes 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 Date GA/Weeks # Preg Succ Route Wgt Sex Labor Lgth Anesthesia Location Prov Complic 09/06/20 Delivery Date: 09/06/20 Last Updated by: Eve Perry LPN Patient transferred care to [facility].
[2024-12-23 20:05] VITALS: BP 107/76; PULSE 123; RESP 18; TEMP 36.8; O2SAT 95
[2024-12-23 20:08] VITALS: BP 107/76; PULSE 123; RESP 18; TEMP 36.8; O2SAT 95
[2024-12-23] MEDS: predniSONE 20 MG TAB 60 MG PO (20:46)
[2024-12-23] MEDS: Albuterol/Ipratropium 3 ML UPD VIAL UPD (20:50)
[2024-12-23 21:15] VITALS: PULSE 108; RESP 20; O2SAT 98
--- NOTE | 2024-12-25 16:30 | NUR.NOTE ---
Prescription for nebulizer and compressor device faxed to [facility] @ [phone] today. Nursing Note:
--- NOTE | 2024-12-26 08:39 | NUR.NOTE ---
Access chart [facility] called stating that a nebulizer was ordered for patient, they need demographics and provider notes to process. Will fax to them. . Nursing Note:
== END 2024-12-23 21:41 | disposition home or self-care (01) ==
PROVIDERS: Emergency Provider Emergency Medicine Emergency Medical Services; PCP Nurse Practitioner Family
DX: J45.909 Unspecified asthma, uncomplicated (principal)
CPT/HCPCS: 99283 ×2; 87428; J7512; J7620

== ENCOUNTER 2025-01-22 15:12 | Outpatient (REF) | payer MEDICAID, SELFPAY ==
[2025-01-22 21:37] LABS: Abs Immature Grans 0.04 10^3/uL (0.0-0.06); HCT 43.2 % (36.0-46.0); HGB 14.1 g/dL (11.2-15.7); Immature Grans % 0.4 %; MCH 28.3 pg (27.0-33.0); MCHC 32.6 % (32.0-36.0); MCV 87 fL (80-95); MPV 9.8 fL (8.0-11.0); Platelet Count 365 10^3/uL (130-400); RBC 4.99 10^6/uL (3.93-5.22); RDW 13.6 % (11.7-14.6); RDW-SD 42.6 fL; WBC 11.20 10^3/uL (4.4-10.8)
[2025-01-22 21:48] LABS: Iron 42 ug/dL (50-170); Total Iron Binding Capacity 260 ug/dL (250-450); Transferrin Sat 16 % (15-50)
[2025-01-22 22:00] LABS: ALT 22 U/L (14-59); AST 15 U/L (15-37); Albumin 4.0 g/dL (3.4-5.0); Alkaline Phosphatase 69 U/L (46-116); Anion Gap 8.8 mmol/L (3-11); BUN 10 mg/dL (7-18); Bilirubin, Total 0.3 mg/dL (0.2-1.0); CO2 29.2 mmol/L (21.0-32.0); Calcium 8.8 mg/dL (8.5-10.1); Chloride 103 mmol/L (98-107); Estimated GFR 123.78 (mL/min/1.73m2); Ferritin 33 ng/mL (8-252); Glucose 83 mg/dL (74-106); Potassium 4.3 mmol/L (3.5-5.1); Sodium 141 mmol/L (136-145); TSH (W/Ref FT4) 0.56 uIU/mL (0.36-3.74); Total Protein 7.2 g/dL (6.4-8.2)
[2025-01-23 18:50] LABS: HIV-1/2 Ag & Ab Screen Negative (Negative)
[2025-01-24 15:37] LABS: Hepatitis A Antibody IgM Negative (Negative); Hepatitis C Ab w Rflx HCV PCR Equivocal (Negative)
== END 2025-01-22 15:13 | disposition home or self-care (01) ==
LOC: NCHCN 15:12
PROVIDERS: PCP Nurse Practitioner Family; Visit Provider Nurse Practitioner Family
DX: R63.4 Abnormal weight loss (principal)
CPT/HCPCS: 80053; 86704; 86709; 86803; 87340; 87389; 87522; 82728; 83540; 83550; 84443; 85025